=== PATIENT | male | born 1990 | race Two or more races ===

== ENCOUNTER 2017-12-14 20:43 | Emergency (ER) | payer BC, OTHER ==
[~2017-12-14] VITALS: Ht 182.9 cm; Wt 142.9 kg
[2017-12-14 23:30] VITALS: BP 148/90
[2017-12-14] MEDS ORDERED: cefTRIAXone SOD 1,000 MG VL IM ONE (23:30)
== END 2017-12-15 00:12 | disposition home or self-care (01) ==
LOC: ER 20:47
DX: J02.0 Streptococcal pharyngitis (principal)
CPT/HCPCS: 96372; 99283; J0696